=== PATIENT | male | born 1965 | race Caucasian/White ===

== ENCOUNTER → 2019-06-19 07:52 | Outpatient (CLI) | payer OTHER ==
--- NOTE | 2019-06-24 09:53 | ST ---
PATIENT:SANDRA BACH MEDICAL RECORD: [id number] SEX: M LOCATION:[facility] ORDER #: ADMISSION DATE: 06/19/19 AGE OF PATIENT: 54 REFERRING PHYSICIAN: INTERPRETING PHYSICIAN: NAYELI DA SILVA MD DATE OF SERVICE: 06/19/2019 PROCEDURE: Nuclear stress test. INDICATIONS: Angina, abnormal ECG, family history of coronary artery disease, and hypertension. He was exercised on standard Lexiscan protocol with 33 mCi of sestamibi injected at peak stress, 11 mCi used previously for rest images. FINDINGS: Gated SPECT reveals a mildly depressed ejection fraction of 46% with decreased thickening and brightening throughout the inferior segments. SPECT imaging: Cardiolite was used as myocardial perfusion agent. There is a fixed perfusion defect inferiorly and apically. This includes the basal, mid, apical, inferior segments as well as the apex itself. There is no evidence of reversibility and the remaining segments have homogeneous uptake at rest and stress. OVERALL IMPRESSION: This is a minimally abnormal nuclear stress test with a fixed perfusion defect inferiorly and apically. No ongoing ischemic burden. Ejection fraction mildly depressed, but preserved at 46%. Continue medical management of the coronary artery disease and cardiac risk factors. TRANSINT:[id number] Voice Confirmation ID: [id number] DOCUMENT ID: [id number] NAYELI DA SILVA MD at 0953 CC: MELQUIADES THOMAS [id number] DICTATION DATE: 06/20/19 1332 OFFICE SUPPORT SPECIALIST: 06/21/19 0111 DEP CLI 06/19/19 [place] [id number] [place] [id number]
== END | disposition home or self-care (01) ==
LOC: D.HCCARDIO 07:52
PROVIDERS: ATTEND Internal Medicine Interventional Cardiology
DX: I20.9 Angina pectoris, unspecified (principal)